=== PATIENT | female | born 1950 | race American Indian/Alaskan Native ===

== ENCOUNTER 2017-07-07 14:21 | Day surgery (SDC) | payer OTHER ==
[~2017-07-07] VITALS: Ht 160 cm; Wt 107.1 kg
[~2017-07-07 14:21] MED LIST: ACET325 PO; ACETAMINOPHEN PO; ACETAMINOPHEN500 MG PO; ACYC200 PO; ACYC400 PO; ALBU.083IS IH; ALBU3IS INH; ALBU3IS NEB; ALBU90OI INH; ALBU90OI6 INH; ALBU90OI61 INH; ALLO100 PO; AMOX500 PO; AZIT250 PO; AZIT500 PO; Antivert25 MG PO; Augmentin 500-1 EACH PO; BENZ100A PO; BUME2 PO; CALC.25 PO; CETI5 PO; CHOL10002; CHOL10002 PO; CIPHYDOTSU OT; CIPR500 PO; CIPRO500 MG PO; CIPRSO OD; CLARITIN10 MG PO; CLIN300 PO; CLON.5 PO; CLON2 PO; CLOT10 SUSW; COENZYME Q-1030 MG PO; COLC.6 PO; COLCRYS0.6 MG PO; CYCL10 PO; Cipro500 MG PO; Co Q-1010 MG PO; Coq-1030 MG PO; DEXA1 PO; DIAZ10 PO; DIAZ5 PO; DILT120 PO; DILT120ERA PO; DILTIAZEM 24HR120 MG PO; DIPH50 PO; DOC250 PO; DOCCAL240 PO; DOCU100 PO; DULO30 PO; ENOX40I SQ; ERGO50000 PO; FAMO20 PO; FERR325 PO; FERREX; FERREX 28 TABL1 EACH PO; FERROUS SULFATE PO; FLONASE ALLERG9.9 ML INH; FLUSAL2505 IH; FLUSAL2505 INH; FLUSAL5005 IH; FLUT1DIS5 INH; FURO40 PO; FURO80 PO; Ferrex 150 For1 EACH; Ferrous Sulfat324 MG PO; Flagyl500 MG PO; GUAI600T33 PO; GUAIFENESIN; HYDACE5 PO; HYDACE7.5 PO; HYDCHL25 PO; HYDHCL25 PO; HYDR-86 PO; HYDR10 PO; HYDROCODONE PO; HYDROCODONE/APAP; Hydrocodone-Ap1 EA23 PO; IBUHYD PO; INS70/30PN SC; INSULANI SC; INSULANPEN SC; ISOD40ER PO; Isosorbide Dini30 MG PO; Isosorbide Mono30 MG PO; KETO10 PO; LANS15EC PO; LANS30EC PO; LAVAP17G PO; LEVFLO250 PO; LEVFLO500 PO; LEVO750 PO; LEVSOD50 PO; LIDO5TP TOP; LORA10 PO; LORA10ER PO; LORA1SY; LOSA25 PO; LOSA50 PO; LOSARTAN POTAS100 MG PO; Lotrimin Ultra12 GM TP; MAGOXI400 PO; MEDR5 PO; METF500 PO; MONISTAT TOP; MONT10T PO; MUCUS ER600 MG PO; Mucinex600 MG PO; NAPR500 PO; NEBI5 PO; NYST100P TOP; NYST100SU MT; Norco 7.5-3251 EACH PO; Novolog Fl100 UNIT/1 SC; Novolog Fl100 UNIT/1 SQ; OLME20 PO; OLME20-12. PO; OMEG1CAP30 PO; OMEP20ER PO; ONDA4 PO; ONDA4ODT MM; OXYACE10 PO; OXYC5; OXYC5 PO; Omeprazole20 M1 PO; PANT20 PO; PANT40 PO; POLY17UD PO; POTCHL10ER PO; POTCHL20ER PO; PRAM.125 PO; PRAM.5 PO; PRAV20 PO; PRED10 PO; PRED20 PO; PREG100 PO; PREG150 PO; PREG25 PO; PREG50 PO; PROCODE120 PO; PROM25; PROM25 PO; PROM25S PR; PSYL5.85P PO; Pravachol40 MG PO; Prednisone20 MG PO; ROBITUSSIN DM PO; ROBITUSSIN100 MG/5 M PO; ROPI.25 PO; ROSU10TA PO; ROSU5 PO; RXNEOPOLHC AD; RXONDA4ODT MM; Requip0.5 MG PO; SPIHYD PO; SPIR25 PO; Senna Laxative8.6 MG PO; Synthroid25 MCG PO; TOCO400 PO; UBID100 PO; Ultram50 MG PO; VASCEPA0.5 GM PO; VENL25 PO; VENL75ER PO; VITAMIN D-3; VITAMIN D35000 UNIT PO; Ventolin5 MG/1 ML INH; Zofran Odt4 MG SL; [UNRECOGNIZED DRUG - REMARK]; [UNRECOGNIZED DRUG - REMARK]; oxygen
[2018-03-18] MEDS ORDERED: Requip0.5 MG PO (11:56)
[2018-03-18] MEDS ORDERED: FEBU40TA PO (17:03)
[2018-03-22] MEDS ORDERED: Acidophilus La100 GM PO (11:25)
[2018-03-22] MEDS ORDERED: BUME1 PO (11:25)
[2018-03-22] MEDS ORDERED: DULERA 200 MCG/13 GM INH (11:26)
[2018-03-22] MEDS ORDERED: LEVO750 PO (11:26)
== END 2017-07-07 16:24 | disposition home or self-care (01) ==
LOC: ORSCSDS 14:21
PROVIDERS: Internal Medicine Gastroenterology
PROC: 0DJ08ZZ Inspection of Upper Intestinal Tract, Via Natural or Artificial Opening Endoscopic (ICD-10-PCS; principal; 2017-07-07 15:30)
DX: R13.10 Dysphagia, unspecified (principal); K44.9 Diaphragmatic hernia without obstruction or gangrene; K20.9 Esophagitis, unspecified; E11.9 Type 2 diabetes mellitus without complications; I10 Essential (primary) hypertension; J44.9 Chronic obstructive pulmonary disease, unspecified; Z99.81 Dependence on supplemental oxygen; G40.909 Epilepsy, unspecified, not intractable, without status epilepticus; E78.5 Hyperlipidemia, unspecified; E66.9 Obesity, unspecified; Z68.41 Body mass index [BMI] 40.0-44.9, adult; Z79.899 Other long term (current) drug therapy
CPT/HCPCS: 82947; J2250

== ENCOUNTER → 2017-10-03 | Outpatient (CLI) | payer OTHER ==
[~2017-10-03] MED LIST changes: -Ferrous Sulfat324 MG PO
== END | disposition home or self-care (01) ==
LOC: LAB SHORT 13:03 → PLD 13:03
DX: N85.8 Other specified noninflammatory disorders of uterus (principal); N95.0 Postmenopausal bleeding
CPT/HCPCS: 88305

== ENCOUNTER → 2017-10-03 | Outpatient (CLI) | payer OTHER ==
[2017-10-03 20:39] LABS: Candida species (DNA Probe) Negative (NEGATIVE); G. vaginalis (DNA Probe) Negative (NEGATIVE); T. vaginalis (DNA Probe) Negative (NEGATIVE)
== END | disposition home or self-care (01) ==
LOC: LAB 09:57 → LAB SHORT 09:57
PROVIDERS: Obstetrics & Gynecology
DX: Z01.419 Encounter for gynecological examination (general) (routine) without abnormal findings (principal); N76.0 Acute vaginitis
CPT/HCPCS: 87480; 87510; 87660

== ENCOUNTER → 2017-11-04 | Outpatient (CLI) | payer OTHER ==
[2017-11-04 16:54] LABS: Source, Urine Clean Catch
[2017-11-04 18:08] LABS: Appearance, Urine Clear (Clear); Blood, Urine 1+ (Neg); Color, Urine Amber (P-Yellow); Glucose Qualitative, Urine Neg (Neg); Ketones, Urine 1+ (Neg); Leukocyte Esterase, Urine 2+ (Neg); Nitrite, Urine Neg (Neg); Protein, Urine 2+ (Neg); Urobilinogen, Urine 1+ (Normal)
[2017-11-04 18:22] LABS: Bilirubin, Urine 2+ (Neg)
[2017-11-04 18:23] LABS: Bacteria Mod /hpf; Calcium Oxalate Crystals Mod /hpf; Squamous Epithelial Cells Few /hpf (Few)
== END | disposition home or self-care (01) ==
LOC: LAB SHORT 14:45 → LAB 14:45
PROVIDERS: Obstetrics & Gynecology
DX: R35.0 Frequency of micturition (principal)
CPT/HCPCS: 81001; 87086; 87147; 87184

== ENCOUNTER → 2018-05-21 | Outpatient (CLI) | payer OTHER ==
[~2018-05-21] MED LIST changes: +Acidophilus La100 GM PO; +BUME1 PO; +DULERA 200 MCG/13 GM INH; +FEBU40TA PO; +Ferrous Sulfat324 MG PO
== END | disposition home or self-care (01) ==
LOC: LAB SHORT 17:38 → LAB 17:38
DX: R05 Cough (principal)
CPT/HCPCS: 87070; 87205

== ENCOUNTER → 2021-10-17 | Outpatient (CLI) | payer OTHER ==
[~2021-10-17] MED LIST changes: +ACIDOPHILUS LACT1 GM PO; -ALBU3IS NEB; -Acidophilus La100 GM PO; +LEVSOD25 PO; -LEVSOD50 PO; +NOVOLOG FL100 UNIT/1 SC; -Novolog Fl100 UNIT/1 SC
[2021-10-17 17:07] LABS: U Amphetamine Screen Not Detected; U Barbituate Screen Not Detected; U Benzodiazapine Screen Not Detected; U Buprenorphine Screen Not Detected; U Cannabinoids Screen Not Detected; U Cocaine Screen Not Detected; U Methadone Screen Not Detected; U Methamphetamine Screen Not Detected; U Opiates Screen Not Detected; U Oxycodone Screen Not Detected; U Phencyclidine Screen Not Detected; U Propoxyphene Screen Not Detected
== END | disposition home or self-care (01) ==
LOC: LAB SHORT 15:00
PROVIDERS: Physician Assistant
DX: M54.50 Low back pain, unspecified (principal); G89.4 Chronic pain syndrome

== ENCOUNTER → 2021-11-28 | Outpatient (CLI) | payer OTHER ==
[2021-11-28 19:59] LABS: U Amphetamine Screen Not Detected; U Barbituate Screen Not Detected; U Benzodiazapine Screen Not Detected; U Buprenorphine Screen Not Detected; U Cannabinoids Screen Not Detected; U Cocaine Screen Not Detected; U Methadone Screen Not Detected; U Methamphetamine Screen Not Detected; U Opiates Screen Not Detected; U Oxycodone Screen Not Detected; U Phencyclidine Screen Not Detected; U Propoxyphene Screen Not Detected
== END | disposition home or self-care (01) ==
LOC: LAB SHORT 15:15
PROVIDERS: Physician Assistant
DX: G89.4 Chronic pain syndrome (principal); R30.0 Dysuria

== ENCOUNTER → 2021-12-05 | Outpatient (CLI) | payer OTHER | END | disposition home or self-care (01) | LOC: LAB 14:30 → LAB SHORT 14:30 | DX: R30.9 Painful micturition, unspecified (principal) | CPT/HCPCS: 87077; 87086; 87186 ==

== ENCOUNTER → 2022-02-27 | Outpatient (CLI) | payer OTHER ==
[2022-02-27 20:18] LABS: Creatinine, Urine Random >400.00 mg/dL (27.00-270.00); Microalb/Creat Ratio UR, Rand Unable to Calculate mg/g (0.000-30.000)
== END | disposition home or self-care (01) ==
LOC: LAB SHORT 15:45 → LAB 15:45
PROVIDERS: Physician Assistant
DX: E11.51 Type 2 diabetes mellitus with diabetic peripheral angiopathy without gangrene (principal); E11.69 Type 2 diabetes mellitus with other specified complication; E11.59 Type 2 diabetes mellitus with other circulatory complications; E11.22 Type 2 diabetes mellitus with diabetic chronic kidney disease
CPT/HCPCS: 82043; 82570; 87077; 87086; 87186

== ENCOUNTER 2022-03-20 17:11 | Inpatient (IN) | payer OTHER ==
[~2022-03-20] VITALS: Ht 162.6 cm; Wt 123.7 kg
[~2022-03-20 17:11] MED LIST changes: -ACIDOPHILUS LACT1 GM PO; -DILT120ERA PO; +EUTHYROX50 MCG PO; +LACT PO; -LEVSOD25 PO; +LOVAZA PO; +Ropinirole HCl0.5 MG PO; +VITAMIN D31000 UNI1 PO
[2022-03-20 21:15] LABS: BASOPHILS ABSOLUTE AUTO 0.13 K/mm3 (0.00-0.23); BASOPHILS PERCENT AUTO 1 % (0-2); EOSINOPHILS ABSOLUTE AUTO 0.03 K/mm3 (0.00-0.68); EOSINOPHILS PERCENT AUTO 0 % (0-6); Hematocrit 48.8 % (33.0-51.0); Hemoglobin 15.5 g/dL (11.5-16.0); IMMATURE GRAN ABSOLUTE AUTO 0.18 K/mm3 (0.00-0.10); IMMATURE GRAN PERCENT AUTO 1 % (0-1); LYMPHOCYTES ABSOLUTE AUTO 1.99 K/mm3 (0.84-5.20); LYMPHOCYTES PERCENT AUTO 14 % (21-46); MONOCYTES ABSOLUTE AUTO 0.92 K/mm3 (0.16-1.47); MONOCYTES PERCENT AUTO 7 % (4-13); Mean Corpuscular HGB Conc 31.8 g/dL (31.5-36.5); Mean Corpuscular Volume 101 fL (80-100); Mean Platelet Volume 11.2 fL (9.1-12.4); NEUTROPHILS ABSOLUTE AUTO 10.95 K/mm3 (1.96-9.15); NEUTROPHILS PERCENT AUTO 77 % (41-73); Platelet Count 310 K/mm3 (150-400); RDW Coefficient Variation 12.5 % (11.7-14.2); RDW Standard Deviation 46.8 fL (35.1-46.3); Red Blood Cell Count 4.84 M/mm3 (3.80-5.20)
[2022-03-20 21:34] LABS: Albumin, Blood 3.5 g/dL (3.4-5.0); Albumin/Globulin Ratio 0.9 (0.8-1.8); Bilirubin, Total 0.7 mg/dL (0.1-1.0); Bun/Creatinine Ratio 17.6 (12.0-20.0); Calcium, Blood 9.7 mg/dL (8.5-10.1); Creatinine, Blood 1.02 mg/dL (0.40-1.00); Total Protein, Blood 7.5 g/dL (6.4-8.2)
[2022-03-20 21:50] LABS: Source, Urine Straight Cath
[2022-03-20 21:55] LABS: Appearance, Urine Clear (Clear); Bilirubin, Urine Neg (Neg); Blood, Urine 1+ (Neg); Color, Urine Yellow (P-Yellow); Glucose Qualitative, Urine Neg (Neg); Ketones, Urine Neg (Neg); Leukocyte Esterase, Urine Neg (Neg); Nitrite, Urine Neg (Neg); Protein, Urine 1+ (Neg); Specific Gravity, Urine 1.015 (1.003-1.022); Urobilinogen, Urine NORM (Normal)
[2022-03-20 22:11] LABS: Hyaline Casts 0-2 /lpf (0-2)
[2022-03-20 22:12] LABS: Bacteria Few /hpf; Red Blood Cells, Urine 0-2 /hpf (0-2); Squamous Epithelial Cells Few /hpf (Few); White Blood Cells, Urine 0-2 /hpf (0-5)
[2022-03-21] MEDS ORDERED: IPRAT-ALBUT 0.5-3 ML INH (01:08)
[2022-03-21] MEDS ORDERED: BASAGLAR K100 UNIT/3 SC (01:10)
[2022-03-21] MEDS ORDERED: OXYC5 PO (01:10)
[2022-03-21] MEDS ORDERED: VASCEPA1 G1 PO (01:11)
[2022-03-21] MEDS ORDERED: Ketoconazole120 ML TOP (01:11)
[2022-03-21] MEDS ORDERED: STIOLTO RESPIMAT4 G1 INH (01:12)
[2022-03-21] MEDS ORDERED: PANT20 PO (01:15)
[2022-03-21] MEDS ORDERED: NYSTATIN15 GM TOP (01:16)
[2022-03-21] MEDS ORDERED: NOVOLOG FL100 UNIT/3 SC (01:17)
[2022-03-21] MEDS ORDERED: LEVOCETIRIZINE D5 MG PO (01:23)
[2022-03-21] MEDS ORDERED: FENOFIBRATE48 MG PO (01:24)
[2022-03-21] MEDS ORDERED: ELIQUIS5 M3 PO (01:24)
[2022-03-21] MEDS ORDERED: ALLOPURINOL100 M1 PO (01:26)
[2022-03-21] MEDS ORDERED: COLCRYS0.6 M1 PO (01:26)
[2022-03-21 01:54] LABS: Influenza A, PCR NEGATIVE (NEGATIVE); Influenza B, PCR NEGATIVE (NEGATIVE); Resp Syncytial Virus, PCR NEGATIVE (NEGATIVE); SARS-Cov-2 (COVID-19) PCR, MMC NEGATIVE (NEGATIVE)
[2022-03-21 05:57] LABS: BASOPHILS ABSOLUTE AUTO 0.06 K/mm3 (0.00-0.23); BASOPHILS PERCENT AUTO 1 % (0-2); EOSINOPHILS ABSOLUTE AUTO 0.16 K/mm3 (0.00-0.68); EOSINOPHILS PERCENT AUTO 2 % (0-6); Hematocrit 39.6 % (33.0-51.0); Hemoglobin 12.6 g/dL (11.5-16.0); IMMATURE GRAN ABSOLUTE AUTO 0.04 K/mm3 (0.00-0.10); IMMATURE GRAN PERCENT AUTO 0 % (0-1); LYMPHOCYTES ABSOLUTE AUTO 3.11 K/mm3 (0.84-5.20); LYMPHOCYTES PERCENT AUTO 30 % (21-46); MONOCYTES PERCENT AUTO 9 % (4-13); Mean Corpuscular HGB 31.8 pg (26.0-34.0); Mean Corpuscular HGB Conc 31.8 g/dL (31.5-36.5); Mean Corpuscular Volume 100 fL (80-100); Mean Platelet Volume 11.4 fL (9.1-12.4); NEUTROPHILS ABSOLUTE AUTO 6.06 K/mm3 (1.96-9.15); NEUTROPHILS PERCENT AUTO 59 % (41-73); Platelet Count 328 K/mm3 (150-400); RDW Coefficient Variation 12.4 % (11.7-14.2); RDW Standard Deviation 46.1 fL (35.1-46.3); Red Blood Cell Count 3.96 M/mm3 (3.80-5.20); White Blood Cell Count 10.33 K/mm3 (4.00-11.30)
[2022-03-21 06:24] LABS: Bilirubin, Total 0.7 mg/dL (0.1-1.0); Bun/Creatinine Ratio 16.2 (12.0-20.0); Calcium, Blood 8.8 mg/dL (8.5-10.1); Creatinine, Blood 0.8 mg/dL (0.40-1.00); Globulin, Blood 3.1 g/dL (2.2-4.0); Total Protein, Blood 6.1 g/dL (6.4-8.2)
--- NOTE | 2022-03-21 06:29 | NUR ---
SHIFT SUMMARY: PATIENT ARRIVED FROM ED BY EAMONRBA AND WAS SLID TO [facility] BED WITH 4 STAFF ASSIST. PATIENT A&O X4, PLEASANT AND COOPERATIVE WITH CARE, USES CALL LIGHT APPROPRIATELY. VS WNL. PATIENT HAS ABDOMINAL PAIN R/T DIAGNOSIS. PLAN FOR SURGERY TODAY - CONSULT CALLED AND PATIENT NPO SINCE MIDNIGHT. LIMITED ROM IN R KNEE. MEDICATED PER EMAR. PUREWICK IN PLACE DRAINING URINE. BED LOW WITH CALL LIGHT IN REACH. NO ADVERSE EVENTS THIS SHIFT. WILL CONTINUE TO MONITOR UNTIL REPORT TO DAY RN.
--- NOTE | 2022-03-21 07:30 | NUR ---
ASSUMED CARE OF PT- BEDSIDE REPORT COMPLETED WITH NIGHT RN. DR TO AT THE BEDSIDE JUST AFTER REPORT. PT REPORTS ABDOMINAL PAIN AFTER PALPATION, WAS GOING TO MEDICATE WITH IV FENTANYL HOWEVER PT BP'S WERE SOFT. IVF STARTED AT 125ML/HR PER DR TO AT THAT TIME. CREPE BOX TENDER SHOWED UP TO GET THE PT PRIOR TO PAIN MED ADMINISTRATION. BP AT THE TIME PT LEFT MEDICAL FLOOR 95/45. 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 PT WAS TAKEN TO SURGERY AT THIS TIME PLAN POST OP TO SEND PT TO ICU FOR RECOVERY AND TREATMENT. ATTEMPTED TO CALL BEATER AND PULPER FEEDER FOR REPORT AWAITING A CALL BACK.
--- NOTE | 2022-03-21 12:01 | NUR ---
TELEPHONE REPORT COMPLETED WITH ENDODONTIC ASSISTANT JOSIAH. NO FURTHER QUESTIONS AT THIS TIME.
--- NOTE | 2022-03-21 12:14 | NUR ---
ARRIVAL: Pt arrived to ICU 13 from OR at 1214. BIPAP placed. Pt moaning from pain. MADAI drains patent and draining sanguinous fluid.
--- NOTE | 2022-03-21 12:45 | NUR ---
PROVIDER PHONE CALL: Dr Alexander called and notified of pt status as well as pain. Telephone order for rolly.
--- NOTE | 2022-03-21 19:38 | NUR ---
SHIFT SUMMARY: pt arrived to ICU 13 from [facility] after noon today. Upon arrival, pt was very painful. She was medicated with 50 mcg of fentanyl x2 and 1mg of dilaudid x 3 before fentanyl RETAIL SERVICE LEAD MERCHANDISER was started. NEURO: WNL CARDIAC: WNL. RESPIRATORY: pt pulled off her BIPAP due to pain. She tolerated 6L NC well until she began to nap. BIPAP was replaced until 1600 when she awoke. She is tolerating 6L NC well while visiting with family at bedside. GI/: midline omar drain in place with scant drainage marked. Bilateral MADAI drains draining serosanguinous fluid. Abdominal binder was placed once pt able to tolerate movement. Bowel tones hypoactive but presend. Pt tolerated jello and water well. Araya catheter in place and draining to cravity. PSYCH/SOCIAL: family at bedside and supportive.
--- NOTE | 2022-03-22 01:16 | NUR ---
ASSUMED CARE ASSUMED CARE AT 1900. PT A/O X 4. FENTANYL DRUG SAFETY ASSISTANT INFUSING AT 25MCG/HR W/ 10MCG ON DEMAND VIA PT TRIGGER. PT SLEEPING BUT AWAKENS EASILY. PT REPORTED PAIN 9/10 IN ABD. PT FALLING ASLEEP WHILE BEING ASSESSED FOR PAIN. BILATERAL MADAI DRAINS IN PLACE, AND JOSE MIGUEL DRAIN/DRSG OVER MIDLINE INCISION. DRSG INTACT W/ MINIMAL BLEEDING, MARKED BY DAYSHIFT. QUIÑONEZ IN PLACE AND DRAINING TO GRAVITY.
--- NOTE | 2022-03-22 03:09 | NUR ---
ANXIETY PATIENT C/O ANXIETY FOLLOWING PAINFUL COUGHING EPISODE. ATTEMPTED TO CALM PATIENT WITH THERAPEUTIC COMMUNICATION WITHOUT SUCCESS. CALL MADE TO DR. GURROLA AND ORDER OBTAINED FOR ONE TIME DOSE FO ATIVAN 0.5 MG PO X 1. ATIVAN GIVEN TO PATIENT.
[2022-03-22 03:38] LABS: BASOPHILS ABSOLUTE AUTO 0.03 K/mm3 (0.00-0.23); BASOPHILS PERCENT AUTO 0 % (0-2); EOSINOPHILS PERCENT AUTO 0 % (0-6); Hematocrit 38.3 % (33.0-51.0); Hemoglobin 12.6 g/dL (11.5-16.0); IMMATURE GRAN ABSOLUTE AUTO 0.05 K/mm3 (0.00-0.10); IMMATURE GRAN PERCENT AUTO 0 % (0-1); LYMPHOCYTES ABSOLUTE AUTO 1.52 K/mm3 (0.84-5.20); LYMPHOCYTES PERCENT AUTO 10 % (21-46); MONOCYTES ABSOLUTE AUTO 1.45 K/mm3 (0.16-1.47); MONOCYTES PERCENT AUTO 9 % (4-13); Mean Corpuscular HGB 32.4 pg (26.0-34.0); Mean Corpuscular HGB Conc 32.9 g/dL (31.5-36.5); Mean Corpuscular Volume 99 fL (80-100); Mean Platelet Volume 11.7 fL (9.1-12.4); NEUTROPHILS ABSOLUTE AUTO 12.74 K/mm3 (1.96-9.15); NEUTROPHILS PERCENT AUTO 81 % (41-73); Platelet Count 318 K/mm3 (150-400); RDW Coefficient Variation 12.3 % (11.7-14.2); RDW Standard Deviation 44.3 fL (35.1-46.3); Red Blood Cell Count 3.89 M/mm3 (3.80-5.20); White Blood Cell Count 15.79 K/mm3 (4.00-11.30)
[2022-03-22 03:58] LABS: Albumin, Blood 2.8 g/dL (3.4-5.0); Albumin/Globulin Ratio 0.8 (0.8-1.8); Bilirubin, Total 0.5 mg/dL (0.1-1.0); Calcium, Blood 8.5 mg/dL (8.5-10.1); Creatinine, Blood 0.88 mg/dL (0.40-1.00); Globulin, Blood 3.6 g/dL (2.2-4.0); Potassium, Blood 4.6 mmol/L (3.5-5.5); Total Protein, Blood 6.4 g/dL (6.4-8.2)
--- NOTE | 2022-03-22 06:24 | NUR ---
SHIFT SUMMARY DIFFICULTY W/ PAIN AND ANXIETY CONTROL T/O NIGHT. SEE PREVIOUS NOTES. DRSG SITES REMAIN UNCHANGED. MADAI DRAIN OUTPUT DECREASED FROM DAY SHIFT. SANGUINEOUS IN COLOR. FENTANYL CANVAS CUTTER HAND 25MCG/HR W/ 10MCG ON DEMAND VIA PT TRIGGER. NS AT 125ML/HR. PT WORE BIPAP FOR A SHORT TIME AND THEN PULLED IT OFF D/T COUGHING AND PAIN. DECLINED BIPAP AFTER-PLACED ON 6L NC. EDUCATED ON DEEP BREATHING AND COUGHING TECHNIQUES. PT REQUIRES ENCOURGEMENT TO PARTICIPATE IN CARES. TOLERATING CLEAR LIQUID DIET. DENIES N/V. QUIÑONEZ PATENT AND DRAINING TO GRAVITY. ABD BINDER IN PLACE.
--- NOTE | 2022-03-22 10:15 | NUR ---
Care Assumed 0700 A/O X 4, aware of event, location, and PMH. VSS. On 4 L via NC. Midline JOSE MIGUEL drain in place with scant drainage. Dressing C/D/I. Bilateral MADAI drains draining serosanguinous fluid. ABD binder in place and pillow provided for coughing. BT hypoactive. Pt states having pain 8 to 10. Fentanyl SCAFFOLD BUILDER in place, see emar. Treated per emar. Anxious about home medication and case finisher spoke to patient about getting home medication from [facility]. Dr. Devine and Dr. Mcpherson in to see patient. Pt to be transfered to surgerical floor. Dr. Alexander and team in to see patient as well.
--- NOTE | 2022-03-22 10:26 | NUR ---
Hypotension Dr. Alexander called in regards to low MAPS. New orders recieved to increase NS to 150.
--- NOTE | 2022-03-22 11:04 | NUR ---
"Spiritual Care | Patient Request Pt. is in bed and welcomes my visit. Pt. is unsettled by acute abdominal pain especially when she coughs. Listen with empathy and a calming presence. Pt. displays evidence of trust and engagement as she verbalizes an extensive health history. Pt. verbalizes about her ken. Consider issues of ken and beleif. Prayed with Pt. and pt. verbalizes gratitude for the spiritual care visit."
--- NOTE | 2022-03-22 13:50 | NUR ---
Hypotension- Dr. Devine called New orders recieved for Midodrine.
--- NOTE | 2022-03-22 17:05 | NUR ---
Shift Summary Remains A/O X 4. Complains of pain frequently, treated per emar. ABD site unchanged. JOSE MIGUEL dressing C/D/I. MADAI drain left and right output of 20, serosanguineous. BT hypoactive. Pt complains of nausea (/), treated per emar. On 4 L via NC, SPO2 > 90%. Pt anxious T/O shift due to concerns of not receiving Vascepa (home [place] 3 medication). material worker spoke to provider. Pt crying at times due to not having medication and worrying about hospital discharge without appropriate bed. VSS. NSR. Pt tolerating PO intake well. Appears to fall asleep quickly when nurse not in the room. Dr. Devine called in regards to patient requesting Vascepa (home medication), provider to put in orders for replacement. Provider also made aware that pt would like hospital bed upon discharge. Coreg held after discussing with provider. Pt hypotensive prior.
--- NOTE | 2022-03-22 22:09 | NUR ---
ASSUMED CARE ASSUMED CARE AT 1900. PT A/O X 4. FENTANYL NURSERY LABORER 25CG/HR W/ 10MCG Q10MIN ON DEMAND. MIDLINE INSICION COVERED WITH JOSE MIGUEL DRSG. INTACT AND MINIMAL BLEEDING NOTED. BILATERAL MADAI DRAINS IN PLACE. ABD BINDER IN PLACE. QUIÑONEZ PATENT AND DRAINING TO GRAVITY. 2.5L NC W/ SPO2 GREATER THAN 90%. CALL MADE TO RESIDENT REGARDING SBP 130'S. ORDERS RECEIVED.
--- NOTE | 2022-03-22 22:59 | NUR ---
TRANSFERED TO 214 PT TRANSPORTED VIA BED TO ROOM 214. THIS RN AT BEDSIDE. SOFTWARE ENGINEER SETTINGS REPROGRAMED WITH BATTERBOARD SETTER D/T PUMP TURING OFF DURING TRANSPORT. MCGS GIVEN SINCE CLEARING REMAINED ON PUMP. PT REPORTS MISSING A PAIR OF BLACK FLIP-FLOPS. CALL MADE TO MEDICAL FLOOR. ACC WILL CHECK LOST AND FOUND.
--- NOTE | 2022-03-22 23:19 | NUR ---
TRANSFER PT TRANSFER FROM ICU, 4 P SLIDE TO NEW BED. PT REPORTING 10/10 ABD PAIN. OTHER RN NOTICED CORRESPONDENCE ANALYST PUMP WAS TURNED OFF. VERIFIED ORDERS c ARTIST RELATIONSHIP MANAGER & ICU NURSE THEN RESTARTED CORRESPONDENCE ANALYST PUMP. CALL LIGHT IN REACH, WILL MONITOR.
--- NOTE | 2022-03-23 04:53 | NUR ---
SHIFT SUMMARY AOX4. POD 2 FOR INCISIONAL HERNIA REPAIR. MIDLINE JOSE MIGUEL DRESSING INTACT, SM AMOUNT DRAINAGE ON BANDAGE HASNT GROWN OUTSIDE BLACK MARKER LINE. REPORTS 01/28 ALLOVER ABD PAIN WORSE c COUGHING OR REPOSITIONING, MEDICATED VIA TOURISM RADIO PRESENTER PUMP. PT ABLE TO REST SOUNDLY AFTER USING TOURISM RADIO PRESENTER PUMP. BILAT LQ ABD MADAI DRAIN c 30ML TOTAL OF CRANBERRY COLOR DRAINAGE. DENIES N/V OR PASSING GAS. QUIÑONEZ DRAINING ORANGE URINE. 2 MAX ASSIST FOR REPOSITIONING & CARE. PT c DEPENDENT & +2 EDEMA T/O BODY, SKIN VERY TAUGHT. TEMP SLIGHTLY ELEVATED THIS AM, HOWEVER PT HAD MULTIPLE BLANKETS ON & RM TEMP WAS INCREASED, THEREFORE REMOVED BLANKETS & WILL RECHECK TEMP. CALL LIGHT IN REACH & PT ABLE TO MAKE NEEDS KNOWN.
[2022-03-23 07:15] LABS: Hematocrit 34.6 % (33.0-51.0); Hemoglobin 11.1 g/dL (11.5-16.0); Mean Corpuscular HGB 32.7 pg (26.0-34.0); Mean Corpuscular HGB Conc 32.1 g/dL (31.5-36.5); Mean Corpuscular Volume 102 fL (80-100); Mean Platelet Volume 11.7 fL (9.1-12.4); Platelet Count 310 K/mm3 (150-400); RDW Coefficient Variation 12.7 % (11.7-14.2); Red Blood Cell Count 3.39 M/mm3 (3.80-5.20); White Blood Cell Count 11.64 K/mm3 (4.00-11.30)
--- NOTE | 2022-03-23 07:30 | NUR ---
ASSUMED CARE: SODER AT BEDSIDE WITH PT AND INSTRUCTS PT THAT SHE NEEDS TO GET OUT OF BED THIS SHIFT. PT STATES SHE STILL IS IN A LOT OF PAIN EVEN WITH PAIN REGIMEN. DR REMINDED PT THAT THERE WILL BE PAIN DUE TO NATURE OF THE SURGERY. FENTANYL KILN STACKER RUNNING AND BUTTON IN HAND
[2022-03-23 07:37] LABS: Albumin, Blood 2.5 g/dL (3.4-5.0); Albumin/Globulin Ratio 0.7 (0.8-1.8); Bilirubin, Total 0.6 mg/dL (0.1-1.0); Calcium, Blood 8.2 mg/dL (8.5-10.1); Creatinine, Blood 0.9 mg/dL (0.40-1.00); Globulin, Blood 3.5 g/dL (2.2-4.0); Potassium, Blood 4.5 mmol/L (3.5-5.5)
--- NOTE | 2022-03-23 09:15 | NUR ---
REPORT GIVEN TO KEVIN CROFT.
--- NOTE | 2022-03-23 14:30 | NUR ---
PATIENT REFUSED TO WORK WITH THERAPY, STATED "NOT TODAY, TOMORROW". THIS RN EDUCATED PATIENT ON IMPORTANCE OF BEING UP OUT OF BED, PATIENT VERBALIZED UNDERSTANDING BUT STATED SHE WAS TOO PAINFUL TODAY.
--- NOTE | 2022-03-23 17:50 | NUR ---
SHIFT SUMMARY POD 2 HERNIA REPAI. MIDLINE JOSE MIGUEL DRESSING IN PLACE, DRY & INTACT, LIGHT SHADOWING, GOOD SUCTION REMAINS. ABDOMINAL BINDER IN PALCE. X2 MADAI DRAINS IN PALCE, SCANT DRAINAGE PRESENT, SS. PATIENT REPORTED HIGH PAIN THORUGHOUT GIOVANNY HALF OF SHIFT, REFUSED TO WORK W/ THERAPY STATING PAIN LEVEL WAS TOO HIGH. DC'D FENTANYL MANAGER OF MARKETING AND STARTED DILAUIDID MANAGER OF MARKETING PER ORDERS, PATIENT REPORTS BETTER PAIN RELEIF. REFUSED TO GET OUT OF BED THROUGHOUT SHIFT, REFUSED TO BE REPOSITIONED MULTIPLE TIMES THORUGHOUT SHIFT, THIS RN EDUCATED ON RISKS OF SKIN BREAKDOWN AND PRESSURE ULCERS. VERY MINIMAL TO NO PO INTAKE THIS SHIFT, CONTINUING TO ENCOURAGE PO INTAKE. DENIES N/V, REPORTS "NOT HUNGRY". QUIÑONEZ IN PLACE, DRAINING KIMBERLY COLOR URINE TO GRAVITY. CALLS APPROPRIATELY, WILL REPORT TO ONCOMING RN AT 1900.
[2022-03-24 04:58] LABS: BASOPHILS ABSOLUTE AUTO 0.04 K/mm3 (0.00-0.23); BASOPHILS PERCENT AUTO 1 % (0-2); EOSINOPHILS ABSOLUTE AUTO 0.11 K/mm3 (0.00-0.68); EOSINOPHILS PERCENT AUTO 1 % (0-6); Hematocrit 32.9 % (33.0-51.0); Hemoglobin 10.5 g/dL (11.5-16.0); IMMATURE GRAN ABSOLUTE AUTO 0.04 K/mm3 (0.00-0.10); IMMATURE GRAN PERCENT AUTO 1 % (0-1); LYMPHOCYTES ABSOLUTE AUTO 1.69 K/mm3 (0.84-5.20); LYMPHOCYTES PERCENT AUTO 19 % (21-46); MONOCYTES ABSOLUTE AUTO 0.95 K/mm3 (0.16-1.47); MONOCYTES PERCENT AUTO 11 % (4-13); Mean Corpuscular HGB 32.6 pg (26.0-34.0); Mean Corpuscular HGB Conc 31.9 g/dL (31.5-36.5); Mean Corpuscular Volume 102 fL (80-100); Mean Platelet Volume 11.4 fL (9.1-12.4); NEUTROPHILS ABSOLUTE AUTO 5.97 K/mm3 (1.96-9.15); NEUTROPHILS PERCENT AUTO 68 % (41-73); Platelet Count 298 K/mm3 (150-400); RDW Coefficient Variation 12.1 % (11.7-14.2); RDW Standard Deviation 46.3 fL (35.1-46.3); Red Blood Cell Count 3.22 M/mm3 (3.80-5.20)
[2022-03-24 05:20] LABS: Albumin, Blood 2.3 g/dL (3.4-5.0); Albumin/Globulin Ratio 0.7 (0.8-1.8); Bilirubin, Total 0.6 mg/dL (0.1-1.0); Bun/Creatinine Ratio 19.6 (12.0-20.0); Calcium, Blood 8.3 mg/dL (8.5-10.1); Creatinine, Blood 0.71 mg/dL (0.40-1.00); Globulin, Blood 3.5 g/dL (2.2-4.0); Potassium, Blood 4.6 mmol/L (3.5-5.5); Total Protein, Blood 5.8 g/dL (6.4-8.2)
--- NOTE | 2022-03-24 05:38 | NUR ---
SHIFT SUMMARY PT DROWSY, LETHARGIC & SLOW TO RESPOND AT BEGINNING OF SHIFT. BECAME MORE ALERT NIGHT WENT ON. AOX3. VSS. SPO2 >95% ON 4L, TITRATED TO BASELINE 2L O2. HAS OCC MOIST CONGESTED WEAK COUGH, WHICH CAUSES ABD PAIN. MEDICATED 2X c GUIFENESIN COUGH SYRUP. POD 4 HERNIA REPAIR. MIDLINE JOSE MIGUEL INTACT. BILAT MADAI DRAIN TOTAL 30ML CRANBERRY COLOR OUTPUT. REPORTS 9-10/10 PAIN EVEN WHEN DROWSY & SLOW TO RESPOND. PT HAS DILAUDID CERTIFIED MEDICAL TRANSCRIPTIONIST PUMP PRN, CONTINUOUS DILAUDID ON HOLD. ABD SEVERE DISTENDED, ACTIVE BT, REPORTS PASSING GAS OT, DENIES N/V. QUIÑONEZ PATENT & DRAINING ORANGE URINE. CALL LIGHT IN REACH & ABLE TO MAKE NEEDS KNOWN.
--- NOTE | 2022-03-24 12:07 | NUR ---
CALL PALCED TO HOSPITALIST ON DR NAVARRO'S BEHALF REGARDING THE NEED FOR THERAPEUTIC ANTICOAGULATION.
--- NOTE | 2022-03-24 16:08 | NUR ---
PATIENT UP TO CHAIR W/ 2-3 P MOD ASSIST. PATIENT ABLE TO MOVE TO EDGE OF BED WELL, NEEDED EXTRA ASSISTANCE SITTING UPPER BODY UP. STOOD & PIVOTTED TO CHAIR WELL. JOSE MIGUEL DRESSING REPLACED, MADAI DRESSINGS REPLACED.
--- NOTE | 2022-03-24 18:33 | NUR ---
SHIFT SUMMARY NO ACUTE CHANGES THIS SHIFT. JOSE MIGUEL DRESSING TO MIDLINE ABDOMEN CHANGED, MADAI DRAIN DRESSING ON RLQ CHANGED. PATIENT UP TO CHAIR W/ 3 NURSING STAFF, TOLERATED FAIRLY. MASTER STEAM YACHT PUMP MANAGING PAIN, PER EMAR. LOTS OF ENCOURAGEMENT FOR MOBILITY & DEEP BREATHING, COUGHING, & USING INCENTIVE SPIROOMETER TODAY. PATIENT VERBALIZED UNDERSTANDING OF RISKS AND DEMONSTARTED USE. TOLERATNG CLEAR LIQUIDS W/O N/V. CALL LIGHT IN REACH, WILL REPORT TO ONCOMING RN.
--- NOTE | 2022-03-25 04:15 | NUR ---
SHIFT SUMMARY POD 4-HERNIA REPAIR. MIDLINE JOSE MIGUEL DRESSING CHANGED ON DAY SHIFT 03/24/22, 2-3 PEA SIZE YELLOW DRAINAGE ON DRESSING. R MADAI DRAIN 20ML SANGUINOUS OUTPUT & L MADAI DRAIN 10ML SANGUINOUS OUTPUT. ABD BINDER IN PLACE. REPORTS -12/29 ABD PAIN, PATIENT SERVICE REP PUMP IN USE PRN. DENIES N/V. TOLERATING CLEAR LIQUIDS. HYPOACTIVE BT. REPORTS PASSING GAS. NO BM. MORE ALERT TONIGHT THEN PREVIOUS NIGHT, AOX4. VSS. SPO2 >90% ON 1.5L O2. LESS COUGHING THIS SHIFT. NO S/SX DYSPNEA. PT UP IN CHAIR @BEGINNING OF SHIFT & TOOK 2 PER GB TO STAND PIVOT TO BED. CALL LIGHT IN REACH, PT ABLE TO MAKE NEEDS KNOWN.
[2022-03-25 05:27] LABS: BASOPHILS ABSOLUTE AUTO 0.05 K/mm3 (0.00-0.23); BASOPHILS PERCENT AUTO 1 % (0-2); EOSINOPHILS ABSOLUTE AUTO 0.31 K/mm3 (0.00-0.68); EOSINOPHILS PERCENT AUTO 4 % (0-6); Hematocrit 31.2 % (33.0-51.0); IMMATURE GRAN ABSOLUTE AUTO 0.01 K/mm3 (0.00-0.10); IMMATURE GRAN PERCENT AUTO 0 % (0-1); LYMPHOCYTES PERCENT AUTO 27 % (21-46); MONOCYTES ABSOLUTE AUTO 0.66 K/mm3 (0.16-1.47); MONOCYTES PERCENT AUTO 9 % (4-13); Mean Corpuscular HGB 32.2 pg (26.0-34.0); Mean Corpuscular HGB Conc 32.1 g/dL (31.5-36.5); Mean Corpuscular Volume 100 fL (80-100); Mean Platelet Volume 11.1 fL (9.1-12.4); NEUTROPHILS ABSOLUTE AUTO 4.08 K/mm3 (1.96-9.15); NEUTROPHILS PERCENT AUTO 58 % (41-73); Platelet Count 293 K/mm3 (150-400); RDW Coefficient Variation 11.9 % (11.7-14.2); RDW Standard Deviation 43.5 fL (35.1-46.3); Red Blood Cell Count 3.11 M/mm3 (3.80-5.20); White Blood Cell Count 7.01 K/mm3 (4.00-11.30)
[2022-03-25 05:40] LABS: Albumin, Blood 2.2 g/dL (3.4-5.0); Albumin/Globulin Ratio 0.6 (0.8-1.8); Bilirubin, Total 0.6 mg/dL (0.1-1.0); Bun/Creatinine Ratio 16.6 (12.0-20.0); Calcium, Blood 8.4 mg/dL (8.5-10.1); Creatinine, Blood 0.6 mg/dL (0.40-1.00); Globulin, Blood 3.5 g/dL (2.2-4.0); Potassium, Blood 3.9 mmol/L (3.5-5.5); Total Protein, Blood 5.7 g/dL (6.4-8.2)
--- NOTE | 2022-03-25 18:16 | NUR ---
SHIFT SUMMARY A&OX4, VSS/2L(BASE), CBGS CNI, POWERGLIDE TOBY. POD4 PERIUMB HERNIA REPAIR, MIDLINE JOSE MIGUEL WNL, BILAT JPs RLQ 30/LLQ 5, PASSING FLATUS, DENIES BM/MIRALAX GIVEN TODAY. VOIDING WELL. LINDA PO CLD. PAIN MANAGED PO 10/325 PERC X4 T/O SHIFT; FORMULA ROOM WORKER STILL AVAILABLE BUT NOT NEEDED TO MANAGE PAIN TODAY. WORKED WITH PT/OT TODAY, AMB SBA FWW/GB TO BRP/UP TO CHAIR T/O SHIFT, BLE ELEVATED AT REST. WILL REPORT TO ONCOMING NOC RN.
--- NOTE | 2022-03-26 05:30 | NUR ---
SHIFT SUMMARY VSS. POD 5-INCISIONAL HERNIA REPAIR. MIDLINE ABD JOSE MIGUEL INTACT. MADAI DRAINS HAD 110ML SANGUINOUS OUTPUT, CRANBERRY RED. NOTED INCREASED MADAI DRAIN OUTPUT THIS SHIFT COMPARED TO PREVIOUS. REPORTS 6-11/28 ABD PAIN c MOVEMENT, MEDICATED 1X c 10MG PERCOCET & PT ABLE TO REST WELL T/O NIGHT. NO ANIMAL DOCTOR PUMP USED THIS SHIFT. PASSING GAS, BELCHING, ACTIVE BT. PT UP 1 ASSIST TO RESTROOM c GB & FWW. CALL LIGHT IN REACH & PT ABLE TO MAKE NEEDS KNOWN.
[2022-03-26 06:04] LABS: Bun/Creatinine Ratio 12.3 (12.0-20.0); Calcium, Blood 8.5 mg/dL (8.5-10.1); Creatinine, Blood 0.65 mg/dL (0.40-1.00); Potassium, Blood 3.9 mmol/L (3.5-5.5)
[2022-03-26 08:41] LABS: BASOPHILS ABSOLUTE AUTO 0.05 K/mm3 (0.00-0.23); BASOPHILS PERCENT AUTO 1 % (0-2); EOSINOPHILS ABSOLUTE AUTO 0.27 K/mm3 (0.00-0.68); EOSINOPHILS PERCENT AUTO 5 % (0-6); Hematocrit 32.4 % (33.0-51.0); Hemoglobin 10.4 g/dL (11.5-16.0); IMMATURE GRAN ABSOLUTE AUTO 0.02 K/mm3 (0.00-0.10); IMMATURE GRAN PERCENT AUTO 0 % (0-1); LYMPHOCYTES ABSOLUTE AUTO 1.51 K/mm3 (0.84-5.20); LYMPHOCYTES PERCENT AUTO 26 % (21-46); MONOCYTES ABSOLUTE AUTO 0.62 K/mm3 (0.16-1.47); MONOCYTES PERCENT AUTO 11 % (4-13); Mean Corpuscular HGB 32.3 pg (26.0-34.0); Mean Corpuscular HGB Conc 32.1 g/dL (31.5-36.5); Mean Corpuscular Volume 101 fL (80-100); Mean Platelet Volume 11.9 fL (9.1-12.4); NEUTROPHILS ABSOLUTE AUTO 3.45 K/mm3 (1.96-9.15); NEUTROPHILS PERCENT AUTO 58 % (41-73); Platelet Count 339 K/mm3 (150-400); RDW Coefficient Variation 11.9 % (11.7-14.2); RDW Standard Deviation 43.5 fL (35.1-46.3); Red Blood Cell Count 3.22 M/mm3 (3.80-5.20); White Blood Cell Count 5.92 K/mm3 (4.00-11.30)
--- NOTE | 2022-03-26 12:19 | NUR ---
Pt. is awake in bed aand welcomes my visit. Pt. is unsettled about appointments and whether they were going to turn the power off at her home. Listened empathetically with a calming presence. Assisted Pt. by getting phone numbers, and helping her dial her phone. Pt. request I stay because she "needed to talk." After she made her calls, I facilitated a life review and we addressed issues of ken and belief. Pt. displayed evidence of continued discomfort, but also displayed evidence of trust and engagement. Prayed with Pt. Pt. verbalized gratitude for the spiritual care visit.
--- NOTE | 2022-03-26 18:27 | NUR ---
SHIFT SUMMARY PATIENT ALERT AND ORIENTED THROUGHOUT SHIFT. ANXIOUS AND FEARFUL AT TIMES. SBA UP TO BATHROOM AND RECLINER. PREFERS TO BE IN BED. MIDLINE ABD WITH JOSE MIGUEL WNL. BILAT MADAI DRAINS WITH SS OUTPUT, TO REMAIN FOR ABOUT ONE MORE WEEK PER DR NAVARRO. MEDICATED FOR PAIN PRN. NEBS FROM RT. 2L O2 IS BASELINE. TOLERATING FULL LIQUIDS. VOIDING WELL, PASSING GAS. JOSE MIGUEL TO BE CHANGED ON Fri03/27/22 FOR MEDIPORE. PLAN FOR DISCHARGE HOME OR SNF.
--- NOTE | 2022-03-27 05:58 | NUR ---
SHIFT SUMMARY NO ACUTE CHANGES. PT RESTED WELL. 1 PERCOCET FOR PAIN PRN. UP WITH 1 ASSIST TO BRP. JOSE MIGUEL DRESSING TO ABD REMAINS CDI WITH ABD BINDER IN PLACE. LEFT MADAI PUTTING OUT MORE THAN RIGHT, BOTH WITH CLEAR RED DRAINAGE. PT PASSING GAS. USES CALL LIGHT APPROPRIATELY.
[2022-03-27 06:33] LABS: Hematocrit 32.2 % (33.0-51.0); Hemoglobin 10.2 g/dL (11.5-16.0)
[2022-03-27 07:59] LABS: BASOPHILS ABSOLUTE AUTO 0.06 K/mm3 (0.00-0.23); BASOPHILS PERCENT AUTO 1 % (0-2); EOSINOPHILS ABSOLUTE AUTO 0.33 K/mm3 (0.00-0.68); EOSINOPHILS PERCENT AUTO 5 % (0-6); Hematocrit 32.6 % (33.0-51.0); Hemoglobin 10.2 g/dL (11.5-16.0); IMMATURE GRAN ABSOLUTE AUTO 0.05 K/mm3 (0.00-0.10); IMMATURE GRAN PERCENT AUTO 1 % (0-1); LYMPHOCYTES ABSOLUTE AUTO 1.52 K/mm3 (0.84-5.20); LYMPHOCYTES PERCENT AUTO 24 % (21-46); MONOCYTES ABSOLUTE AUTO 0.72 K/mm3 (0.16-1.47); MONOCYTES PERCENT AUTO 11 % (4-13); Mean Corpuscular HGB Conc 31.3 g/dL (31.5-36.5); Mean Corpuscular Volume 102 fL (80-100); Mean Platelet Volume 12.1 fL (9.1-12.4); NEUTROPHILS ABSOLUTE AUTO 3.64 K/mm3 (1.96-9.15); NEUTROPHILS PERCENT AUTO 58 % (41-73); Platelet Count 352 K/mm3 (150-400); RDW Coefficient Variation 12.2 % (11.7-14.2); RDW Standard Deviation 45.3 fL (35.1-46.3); Red Blood Cell Count 3.19 M/mm3 (3.80-5.20); White Blood Cell Count 6.32 K/mm3 (4.00-11.30)
[2022-03-27 13:55] LABS: Source, Urine Clean Catch
[2022-03-27 13:58] LABS: Appearance, Urine Clear (Clear); Bilirubin, Urine Neg (Neg); Blood, Urine Neg (Neg); Color, Urine Yellow (P-Yellow); Glucose Qualitative, Urine Neg (Neg); Ketones, Urine Neg (Neg); Leukocyte Esterase, Urine 2+ (Neg); Nitrite, Urine Neg (Neg); Protein, Urine Neg (Neg); Urobilinogen, Urine NORM (Normal); pH, Urine 6.5 (5.0-8.0)
[2022-03-27 14:28] LABS: Bacteria Mod /hpf; Red Blood Cells, Urine 0-2 /hpf (0-2); Squamous Epithelial Cells Few /hpf (Few)
--- NOTE | 2022-03-27 19:31 | NUR ---
SHIFT SUMMARY A&OX4, VSS/2L(BASE)/CBGS/POWERGLIDE TOBY. POD6 INCARC HERNIA REPAIR, MIDLINE JOSE MIGUEL REMOVED, MEDIPORE APPLIED, BILAT JPs RLQ 10/LLQ 5, PASSING FLATUS, DENIES BM/MIRALAX GIVEN TODAY. VOIDING WELL. LINDA PO ADA. PAIN MANAGED PO 10/325 PERC X3. AMB SBA FWW/GB TO BRP/UP TO CHAIR T/O SHIFT, BLE ELEVATED AT REST. WILL REPORT TO ONCOMING NOC RN.
--- NOTE | 2022-03-28 04:30 | NUR ---
SHIFT SUMMARY POD 7 HERNIA REPAIR WITH MIDLINE INCISION, AND X2 MADAI DRAIN SITES. MEDIPORE DRESSING TO MIDLINE C/D/I. ABD BINDER IN PLACE. MADAI DRAINS WITH MODERATE AMOUNT OF SEROSANGUINEOUS DRAINAGE. PATIENT ON 2L NC SATS ABIVE 95%. PATIENT ABLE TO REPOSITION SELF, PASSING GAS NO BM THIS SHIFT, MIRALAX PER EMAR. PAIN MANAGED WELL THIS SHIFT. PATIENT ABLE TO REST T/O NIGHT. PLAN FOR DC TO SNF IN AM. VSS CALL LIGHT IN REACH.
[2022-03-28 05:23] LABS: BASOPHILS ABSOLUTE AUTO 0.07 K/mm3 (0.00-0.23); BASOPHILS PERCENT AUTO 1 % (0-2); EOSINOPHILS ABSOLUTE AUTO 0.28 K/mm3 (0.00-0.68); EOSINOPHILS PERCENT AUTO 4 % (0-6); Hematocrit 32.1 % (33.0-51.0); Hemoglobin 10.2 g/dL (11.5-16.0); IMMATURE GRAN ABSOLUTE AUTO 0.04 K/mm3 (0.00-0.10); IMMATURE GRAN PERCENT AUTO 1 % (0-1); LYMPHOCYTES ABSOLUTE AUTO 2.41 K/mm3 (0.84-5.20); LYMPHOCYTES PERCENT AUTO 37 % (21-46); MONOCYTES ABSOLUTE AUTO 0.72 K/mm3 (0.16-1.47); MONOCYTES PERCENT AUTO 11 % (4-13); Mean Corpuscular HGB 32.4 pg (26.0-34.0); Mean Corpuscular HGB Conc 31.8 g/dL (31.5-36.5); Mean Corpuscular Volume 102 fL (80-100); Mean Platelet Volume 11.3 fL (9.1-12.4); NEUTROPHILS ABSOLUTE AUTO 2.97 K/mm3 (1.96-9.15); NEUTROPHILS PERCENT AUTO 46 % (41-73); Platelet Count 347 K/mm3 (150-400); RDW Coefficient Variation 12.7 % (11.7-14.2); RDW Standard Deviation 46.9 fL (35.1-46.3); Red Blood Cell Count 3.15 M/mm3 (3.80-5.20); White Blood Cell Count 6.49 K/mm3 (4.00-11.30)
[2022-03-28 13:43] LABS: SARS-Cov-2 (COVID-19) PCR, MMC NEGATIVE (NEGATIVE)
--- NOTE | 2022-03-28 16:16 | NUR ---
REPORT CALLED TO LANG WISEMAN @ [facility]. AWAITNG TRANSPORTATION.
--- NOTE | 2022-03-28 16:43 | NUR ---
DISCHARGE PATIENT IS POD 7 FOR A HERNIA REPAIR. MIDLINE INCISION HAS MEDIPORE DRESSING WHICH WAS CHANGED YESTERDAY AND IS C/D/I. X2 LP DRAINS TO BOTH LOWER QUADRANTS OF ABDOMEN, DRAINING SMALL AMOUNT OF SS DRAINAGE. ABDOMINAL BINDER IN PLACE. PAIN MANAGED PER EMAR. AMBULATING WELL TO BATHROOM & CHAOR W/ FWW & GB. EATING, DRINKING, VOIDING WELL. HAVING BM'S & PASSING GAS. REPORT CALLED TO LANG WISEMAN AT [facility].
== END 2022-03-28 16:15 | disposition home or self-care (01) | DRG 354 ==
LOC: ER 17:11 → MEDS 03-21 01:16 → SURS 03-21 01:16 → MEDS 03-21 01:17 → ICUW 03-21 10:07 → SURS 03-22 22:15
PROVIDERS: Emergency Medicine; Family Medicine; Hospitalist; Surgery; ADMIT Internal Medicine
PROC: 3E02340 Introduction of Influenza Vaccine into Muscle, Percutaneous Approach (ICD-10-PCS; 2022-03-21)
PROC: 0WUF0JZ Supplement Abdominal Wall with Synthetic Substitute, Open Approach (ICD-10-PCS; principal; 2022-03-21 09:15)
DX: K43.0 Incisional hernia with obstruction, without gangrene (principal); I13.0 Hypertensive heart and chronic kidney disease with heart failure and stage 1 through stage 4 chronic kidney disease, or unspecified chronic kidney disease; I50.32 Chronic diastolic (congestive) heart failure; I82.409 Acute embolism and thrombosis of unspecified deep veins of unspecified lower extremity; I71.40 Abdominal aortic aneurysm, without rupture, unspecified; J44.9 Chronic obstructive pulmonary disease, unspecified; E03.9 Hypothyroidism, unspecified; G47.33 Obstructive sleep apnea (adult) (pediatric); G89.18 Other acute postprocedural pain; N18.30 Chronic kidney disease, stage 3 unspecified; K42.0 Umbilical hernia with obstruction, without gangrene; E11.22 Type 2 diabetes mellitus with diabetic chronic kidney disease; J32.9 Chronic sinusitis, unspecified; G47.419 Narcolepsy without cataplexy; E78.5 Hyperlipidemia, unspecified; M10.9 Gout, unspecified; I50.812 Chronic right heart failure; I27.20 Pulmonary hypertension, unspecified; M79.7 Fibromyalgia; Z86.711 Personal history of pulmonary embolism; Z20.822 Contact with and (suspected) exposure to COVID-19; Z90.49 Acquired absence of other specified parts of digestive tract; Z79.4 Long term (current) use of insulin; Z91.14 Patient's other noncompliance with medication regimen; Z23 Encounter for immunization; Z98.890 Other specified postprocedural states; Z90.13 Acquired absence of bilateral breasts and nipples; Z98.42 Cataract extraction status, left eye; Z98.41 Cataract extraction status, right eye; Z86.61 Personal history of infections of the central nervous system; Z99.81 Dependence on supplemental oxygen; Z87.19 Personal history of other diseases of the digestive system; Z79.899 Other long term (current) drug therapy; Z79.2 Long term (current) use of antibiotics; Z79.01 Long term (current) use of anticoagulants; Z79.891 Long term (current) use of opiate analgesic; Z88.1 Allergy status to other antibiotic agents; Z88.8 Allergy status to other drugs, medicaments and biological substances
CPT/HCPCS: 0241U; 36415; 71045; 74177; 80048; 80053; 81001; 82947; 83690; 83880; 85014; 85018; 85025; 85027; 87086; 90686; 93005; 93010; 94640; 94660; 94664; 94760; 94762; 96361; 96374-59; 96375; 97110; 97116; 97162; 97530; 99285-25; A9270; C1751; C1781; C9113; J0690; J1100; J1170; J1650; J1815; J2405; J2704; J2795; J3010; J7030; J7050; Q9967; U0004

== ENCOUNTER → 2022-05-22 | Outpatient (CLI) | payer OTHER ==
[~2022-05-22] MED LIST changes: +ALLOPURINOL100 M1 PO; +BASAGLAR K100 UNIT/3 SC; +COLCRYS0.6 M1 PO; +ELIQUIS5 M3 PO; +FENOFIBRATE48 MG PO; +IPRAT-ALBUT 0.5-3 ML INH; +Ketoconazole120 ML TOP; +LEVOCETIRIZINE D5 MG PO; +NOVOLOG FL100 UNIT/3 SC; +NYSTATIN15 GM TOP; +STIOLTO RESPIMAT4 G1 INH; +VASCEPA1 G1 PO
[2022-05-22 19:02] LABS: U Amphetamine Screen Not Detected; U Barbituate Screen Not Detected; U Benzodiazapine Screen Not Detected; U Buprenorphine Screen Not Detected; U Cannabinoids Screen Not Detected; U Cocaine Screen Not Detected; U Methadone Screen Not Detected; U Methamphetamine Screen Not Detected; U Opiates Screen Not Detected; U Oxycodone Screen DETECTED; U Phencyclidine Screen Not Detected; U Propoxyphene Screen Not Detected
== END | disposition home or self-care (01) ==
LOC: LAB SHORT 15:00
PROVIDERS: Physician Assistant
DX: Z51.81 Encounter for therapeutic drug level monitoring (principal); Z79.891 Long term (current) use of opiate analgesic

== ENCOUNTER → 2022-06-11 | Outpatient (CLI) | payer OTHER | END | disposition home or self-care (01) | LOC: LAB SHORT 14:21 | DX: R30.9 Painful micturition, unspecified (principal) | CPT/HCPCS: 87086 ==

== ENCOUNTER → 2022-08-12 | Outpatient (CLI) | payer OTHER | END | disposition home or self-care (01) | LOC: LAB 15:49 → LAB SHORT 15:49 | DX: R30.0 Dysuria (principal) | CPT/HCPCS: 87077; 87086; 87186 ==

== ENCOUNTER → 2022-11-11 | Outpatient (CLI) | payer OTHER | LOC: LAB SHORT 14:15 → LAB 14:15 | DX: L98.9 Disorder of the skin and subcutaneous tissue, unspecified (principal) | CPT/HCPCS: 87071; 87075; 87205 ==

== ENCOUNTER → 2022-11-19 | Outpatient (CLI) | payer OTHER | LOC: LAB SHORT 14:30 → LAB 14:30 | DX: R30.0 Dysuria (principal) | CPT/HCPCS: 87077; 87086; 87186 ==

== ENCOUNTER → 2022-12-20 | Outpatient (CLI) | payer OTHER | END | disposition home or self-care (01) | LOC: LAB SHORT 16:38 → LAB 16:38 | DX: N39.0 Urinary tract infection, site not specified (principal) | CPT/HCPCS: 87077; 87086; 87186 ==

== ENCOUNTER → 2023-02-19 | Outpatient (CLI) | payer OTHER | LOC: LAB 14:00 → LAB SHORT 14:00 | DX: N39.0 Urinary tract infection, site not specified (principal) | CPT/HCPCS: 87086 ==

== ENCOUNTER → 2024-03-01 | Outpatient (CLI) | payer OTHER ==
[~2024-03-01] MED LIST changes: +CATAPRES0.1 MG PO; +CEPH500 PO; +CLARITIN-D 121 EAC1 PO; +CLOBET30L TOP; +CODEINE PO; +DOXY100 PO; +FERSU300 PO; +HYDSUL200 PO; +METTREX2.5 PO; +NASAL SPRAY88 ML; +PROMETHAZINE PO; +TUMS500 MG PO; +VITAMIN D5000 UNIT PO; +ZYRTEC10 M2 PO
== END ==
LOC: LAB SHORT 16:52 → LAB 16:52
DX: R32 Unspecified urinary incontinence (principal); R15.9 Full incontinence of feces
CPT/HCPCS: 87086; 87147

== ENCOUNTER 2024-04-06 15:39 | Emergency (ER) | payer OTHER ==
[~2024-04-06] VITALS: Ht 162.6 cm; Wt 99.3 kg
[~2024-04-06 15:39] MED LIST changes: -CIPROFLOX-DEXA7.5 ML BOTHEARS; -GEMTESA75 MG PO; -OXYC10TA19 PO; -SULFAMETHOXAZO1 EAC1 PO
[2024-04-06 16:10] LABS: BASOPHILS PERCENT AUTO 1 % (0-2); EOSINOPHILS ABSOLUTE AUTO 0.04 K/mm3 (0.00-0.68); EOSINOPHILS PERCENT AUTO 0 % (0-6); Hematocrit 42.2 % (33.0-51.0); IMMATURE GRAN ABSOLUTE AUTO 0.05 K/mm3 (0.00-0.10); IMMATURE GRAN PERCENT AUTO 1 % (0-1); LYMPHOCYTES ABSOLUTE AUTO 1.97 K/mm3 (0.84-5.20); LYMPHOCYTES PERCENT AUTO 19 % (21-46); MONOCYTES ABSOLUTE AUTO 0.81 K/mm3 (0.16-1.47); MONOCYTES PERCENT AUTO 8 % (4-13); Mean Corpuscular HGB 33.5 pg (26.0-34.0); Mean Corpuscular HGB Conc 33.2 g/dL (31.5-36.5); Mean Corpuscular Volume 101 fL (80-100); Mean Platelet Volume 10.7 fL (9.1-12.4); NEUTROPHILS ABSOLUTE AUTO 7.27 K/mm3 (1.96-9.15); NEUTROPHILS PERCENT AUTO 71 % (41-73); Platelet Count 474 K/mm3 (150-400); RDW Coefficient Variation 13.4 % (11.7-14.2); RDW Standard Deviation 49.8 fL (35.1-46.3); Red Blood Cell Count 4.18 M/mm3 (3.80-5.20); White Blood Cell Count 10.24 K/mm3 (4.00-11.30)
[2024-04-06 16:56] LABS: Albumin/Globulin Ratio 0.7 (0.8-1.8); Bilirubin, Total 0.3 mg/dL (0.1-1.0); Bun/Creatinine Ratio 23.6 (12.0-20.0); Calcium, Blood 10.5 mg/dL (8.5-10.1); Creatinine, Blood 1.1 mg/dL (0.40-1.00); Globulin, Blood 4.5 g/dL (2.2-4.0); Potassium, Blood 4.6 mmol/L (3.5-5.5); Total Protein, Blood 7.5 g/dL (6.4-8.2)
[2024-04-06] MEDS ORDERED: OXYC10TA19 PO (21:33)
[2024-04-06] MEDS ORDERED: CIPROFLOX-DEXA7.5 ML BOTHEARS (21:34)
[2024-04-06] MEDS ORDERED: SULFAMETHOXAZO1 EAC1 PO (21:34)
[2024-04-06] MEDS ORDERED: GEMTESA75 MG PO (21:35)
[2024-04-06] MEDS ORDERED: rOPINIRole HCl 0.25 MG Tab PO ONE (23:55)
[2024-04-07 02:00] VITALS: BP 172/58
[2024-04-07] MEDS ORDERED: Clindamycin Phosphate 300 MG in NS 50 ML IV ONE (02:00)
== END 2024-04-07 03:02 | disposition home or self-care (01) ==
LOC: ER 15:39
PROVIDERS: Physician Assistant
DX: J34.0 Abscess, furuncle and carbuncle of nose (principal); M27.2 Inflammatory conditions of jaws; I13.0 Hypertensive heart and chronic kidney disease with heart failure and stage 1 through stage 4 chronic kidney disease, or unspecified chronic kidney disease; I50.9 Heart failure, unspecified; N18.9 Chronic kidney disease, unspecified; J44.9 Chronic obstructive pulmonary disease, unspecified; Z87.39 Personal history of other diseases of the musculoskeletal system and connective tissue; Z79.4 Long term (current) use of insulin; Z79.899 Other long term (current) drug therapy; Z88.1 Allergy status to other antibiotic agents; Z91.018 Allergy to other foods; Z88.5 Allergy status to narcotic agent; Z88.8 Allergy status to other drugs, medicaments and biological substances
CPT/HCPCS: 70487; 80053; 82947; 85025; 96365; 99284-25; A9270; Q9967

== ENCOUNTER → 2024-04-06 | Outpatient (CLI) | payer OTHER ==
[~2024-04-06] MED LIST changes: +CIPROFLOX-DEXA7.5 ML BOTHEARS; +GEMTESA75 MG PO; +OXYC10TA19 PO; +SULFAMETHOXAZO1 EAC1 PO
== END | disposition home or self-care (01) ==
LOC: LAB 16:37 → LAB SHORT 16:37
DX: L08.0 Pyoderma (principal)
CPT/HCPCS: 87070; 87077; 87147; 87186

== ENCOUNTER 2024-08-16 10:01 | Emergency (ER) | payer OTHER ==
[~2024-08-16] VITALS: Ht 165.1 cm; Wt 90.7 kg
[~2024-08-16 10:01] MED LIST changes: +CIPROFLOX-DEXA7.5 ML BOTHEARS; +GEMTESA75 MG PO; +OXYC10TA19 PO; +SULFAMETHOXAZO1 EAC1 PO
[2024-08-16 11:24] LABS: BASOPHILS PERCENT AUTO 1 % (0-2); EOSINOPHILS ABSOLUTE AUTO 0.13 K/mm3 (0.00-0.68); EOSINOPHILS PERCENT AUTO 1 % (0-6); Hematocrit 45.2 % (33.0-51.0); Hemoglobin 14.8 g/dL (11.5-16.0); IMMATURE GRAN ABSOLUTE AUTO 0.03 K/mm3 (0.00-0.10); IMMATURE GRAN PERCENT AUTO 0 % (0-1); LYMPHOCYTES ABSOLUTE AUTO 2.39 K/mm3 (0.84-5.20); LYMPHOCYTES PERCENT AUTO 21 % (21-46); MONOCYTES ABSOLUTE AUTO 0.93 K/mm3 (0.16-1.47); MONOCYTES PERCENT AUTO 8 % (4-13); Mean Corpuscular HGB 33.1 pg (26.0-34.0); Mean Corpuscular HGB Conc 32.7 g/dL (31.5-36.5); Mean Corpuscular Volume 101 fL (80-100); Mean Platelet Volume 11.2 fL (9.1-12.4); NEUTROPHILS ABSOLUTE AUTO 7.58 K/mm3 (1.96-9.15); NEUTROPHILS PERCENT AUTO 68 % (41-73); Platelet Count 345 K/mm3 (150-400); RDW Coefficient Variation 14.3 % (11.7-14.2); RDW Standard Deviation 53.1 fL (35.1-46.3); Red Blood Cell Count 4.47 M/mm3 (3.80-5.20); White Blood Cell Count 11.16 K/mm3 (4.00-11.30)
[2024-08-16 11:50] LABS: Albumin/Globulin Ratio 1.3 (0.8-1.8); Bilirubin, Total 0.4 mg/dL (0.1-1.0); Bun/Creatinine Ratio 25.7 (12.0-20.0); Calcium, Blood 9.7 mg/dL (8.5-10.1); Creatinine, Blood 1.01 mg/dL (0.40-1.00); Globulin, Blood 3.1 g/dL (2.2-4.0); Potassium, Blood 4.3 mmol/L (3.5-5.5); Total Protein, Blood 7.1 g/dL (6.4-8.2)
[2024-08-16 17:45] VITALS: BP 142/86
== END 2024-08-16 17:46 | disposition home or self-care (01) ==
LOC: ER 10:01
PROVIDERS: Physician Assistant
DX: R51.9 Headache, unspecified (principal); H53.2 Diplopia; J44.9 Chronic obstructive pulmonary disease, unspecified; I13.0 Hypertensive heart and chronic kidney disease with heart failure and stage 1 through stage 4 chronic kidney disease, or unspecified chronic kidney disease; I50.9 Heart failure, unspecified; N18.9 Chronic kidney disease, unspecified; G47.30 Sleep apnea, unspecified; Z88.8 Allergy status to other drugs, medicaments and biological substances; Z88.6 Allergy status to analgesic agent; Z91.02 Food additives allergy status; Z91.018 Allergy to other foods; Z79.890 Hormone replacement therapy; Z79.01 Long term (current) use of anticoagulants; Z79.4 Long term (current) use of insulin; Z79.899 Other long term (current) drug therapy
CPT/HCPCS: 70450; 70460; 80053; 82947; 85025; 99284-25; Q9967

== ENCOUNTER 2024-10-13 13:09 | Day surgery (SDC) | payer OTHER ==
[~2024-10-13] VITALS: Ht 162.6 cm; Wt 97.5 kg
[~2024-10-13 13:09] MED LIST changes: +Glycopyrrolate 0.2 MG/ML 1MLVIAL ONE; +Lactated Ringer's 1,000 ML IV ONE; +Lidocaine 2% 5 ML SDV ONE; +Lidocaine HCl/Pf 1% 5 ML VIAL ONE; +Ondansetron HCl 2 MG / ML 2ML Vial ONE; +ePHEDrine Sulfate 50 MG/ML 1ML Injection ONE; +propofoL 60 ML IV ONE
[2024-10-13] MEDS ORDERED: DICLOFENAC SOD100 GM (14:29)
[2024-10-13] MEDS ORDERED: EPIPEN0.3 MG/0.3 (14:30)
[2024-10-13] MEDS ORDERED: NITR100CA (14:33)
[2024-10-13] MEDS ORDERED: MUPIROCIN15 GM (14:33)
[2024-10-13] MEDS ORDERED: INSULANPEN (14:34)
[2024-10-13] MEDS ORDERED: STIOLTO RESPIMAT4 G1 (14:35)
[2024-10-13] MEDS ORDERED: Lactated Ringer's 1,000 ML IV ONE (15:53)
[2024-10-13 16:51] VITALS: BP 105/58
== END 2024-10-13 17:02 | disposition home or self-care (01) ==
LOC: ORSCSDS 13:09
PROVIDERS: Specialist
PROC: 0DB48ZX Excision of Esophagogastric Junction, Via Natural or Artificial Opening Endoscopic, Diagnostic (ICD-10-PCS; principal; 2024-10-13 14:45)
PROC: 0DB68ZX Excision of Stomach, Via Natural or Artificial Opening Endoscopic, Diagnostic (ICD-10-PCS; principal; 2024-10-13 14:45)
PROC: 0DB58ZX Excision of Esophagus, Via Natural or Artificial Opening Endoscopic, Diagnostic (ICD-10-PCS; principal; 2024-10-13 14:45)
PROC: 0DB98ZX Excision of Duodenum, Via Natural or Artificial Opening Endoscopic, Diagnostic (ICD-10-PCS; principal; 2024-10-13 14:45)
DX: R13.10 Dysphagia, unspecified (principal); K29.80 Duodenitis without bleeding; E11.9 Type 2 diabetes mellitus without complications; K21.9 Gastro-esophageal reflux disease without esophagitis; J44.9 Chronic obstructive pulmonary disease, unspecified; F41.9 Anxiety disorder, unspecified; E11.22 Type 2 diabetes mellitus with diabetic chronic kidney disease; I12.9 Hypertensive chronic kidney disease with stage 1 through stage 4 chronic kidney disease, or unspecified chronic kidney disease; N18.30 Chronic kidney disease, stage 3 unspecified; E03.9 Hypothyroidism, unspecified; R56.9 Unspecified convulsions; Z86.711 Personal history of pulmonary embolism; Z86.718 Personal history of other venous thrombosis and embolism; E66.9 Obesity, unspecified; Z68.36 Body mass index [BMI] 36.0-36.9, adult; Z79.4 Long term (current) use of insulin; Z79.899 Other long term (current) drug therapy
CPT/HCPCS: 82947; 88305; 88342; C1769; J2003; J2405; J2704; J7120

== ENCOUNTER → 2024-10-29 | Outpatient (CLI) | payer OTHER ==
[~2024-10-29] MED LIST changes: +DICLOFENAC SOD100 GM; +EPIPEN0.3 MG/0.3; -Glycopyrrolate 0.2 MG/ML 1MLVIAL ONE; +INSULANPEN; -Lactated Ringer's 1,000 ML IV ONE; -Lidocaine 2% 5 ML SDV ONE; -Lidocaine HCl/Pf 1% 5 ML VIAL ONE; +MUPIROCIN15 GM; +NITR100CA; -Ondansetron HCl 2 MG / ML 2ML Vial ONE; +STIOLTO RESPIMAT4 G1; -ePHEDrine Sulfate 50 MG/ML 1ML Injection ONE; -propofoL 60 ML IV ONE
== END | disposition home or self-care (01) ==
LOC: LAB 15:57 → LAB SHORT 15:57
PROVIDERS: Obstetrics & Gynecology
DX: Z01.419 Encounter for gynecological examination (general) (routine) without abnormal findings (principal)
CPT/HCPCS: 87624; G0123

== ENCOUNTER → 2025-03-10 | Outpatient (CLI) | payer OTHER ==
[2025-03-10 19:13] LABS: U Amphetamine Screen Not Detected; U Barbiturate Screen Not Detected; U Benzodiazapine Screen DETECTED; U Buprenorphine Screen Not Detected; U Cannabinoids Screen Not Detected; U Cocaine Screen Not Detected; U Methadone Screen Not Detected; U Methamphetamine Screen DETECTED; U Opiates Screen Not Detected; U Oxycodone Screen DETECTED; U Phencyclidine Screen Not Detected
[2025-03-18 18:26] LABS: AMPHETAMINE,URN,QUANT <50 ng/mL; MDA,URN,QUANT <200 ng/mL; MDEA,URN,QUANT <200 ng/mL; MDMA,URN,QUANT <200 ng/mL; METHAMPHETAMINE,URN,QUANT <200 ng/mL; PHENTERMINE,URN,QUANT <200 ng/mL
[2025-03-19 04:35] LABS: 7-AMINOCLONAZEPAM, URN, QUANT <5 ng/mL; A-HYDROXYALPRAZOLAM, URN, QNT <5 ng/mL; A-HYDROXYMIDAZOLAM, URN, QNT <20 ng/mL; ALPRAZOLAM, URN, QUANT <5 ng/mL; CHLORDIAZEPOXIDE, URN, QUANT <20 ng/mL; CLONAZEPAM, URN, QUANT <5 ng/mL; DIAZEPAM, URN, QUANT <20 ng/mL; LORAZEPAM, URN, QUANT <20 ng/mL; MIDAZOLAM, URN, QUANT <20 ng/mL; NORDIAZEPAM, URN, QUANT <20 ng/mL; OXAZEPAM, URN, QUANT <20 ng/mL; TEMAZEPAM, URN, QUANT <20 ng/mL
[2025-03-19 07:02] LABS: 6-ACETYLMORPHINE, URN, QUANT <10 ng/mL; CODEINE, URN, QUANT <20 ng/mL; HYDROCODONE, URN, QUANT <20 ng/mL; HYDROMORPHONE, URN, QUANT <20 ng/mL; MORPHINE, URN, QUANT <20 ng/mL; NORHYDROCODONE, URN, QUANT <20 ng/mL; NOROXYCODONE, URN, QUANT >4000 ng/mL; NOROXYMORPHONE, URN, QUANT 461 ng/mL; OXYCODONE, URN, QUANT >4000 ng/mL; OXYMORPHONE, URN, QUANT 52 ng/mL
== END ==
LOC: LAB 16:05 → LAB SHORT 16:05
PROVIDERS: Nurse Practitioner Family
DX: M13.0 Polyarthritis, unspecified (principal); Z79.899 Other long term (current) drug therapy
CPT/HCPCS: 85651; G0480; G0481

== ENCOUNTER → 2025-03-29 | Outpatient (CLI) | payer OTHER ==
[2025-03-29 17:21] LABS: Source, Urine Clean Catch
[2025-03-29 19:10] LABS: Color, Urine Amber (P-Yellow); Glucose Qualitative, Urine Neg (Neg); Ketones, Urine 2+ (Neg); Leukocyte Esterase, Urine 2+ (Neg); Protein, Urine 3+ (Neg); Specific Gravity, Urine 1.025 (1.003-1.022); Urobilinogen, Urine 1+ (Normal)
[2025-03-29 19:26] LABS: Bilirubin, Urine 2+ (Neg)
== END ==
LOC: LAB 17:16 → LAB SHORT 17:16
PROVIDERS: Obstetrics & Gynecology
DX: R30.0 Dysuria (principal)
CPT/HCPCS: 81001; 87086